=== PATIENT | male | born 1995 | race Caucasian/White ===

== ENCOUNTER 2024-04-02 17:51 | Emergency (ER) | payer OTHER, SELFPAY ==
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
--- NOTE | ~2024-04-02 | XR_ITS ---
EXAMINATION: XR chest 1V portable DATE: 04/02/2024 18:58 INDICATION: Seizure TECHNIQUE: frontal view of the chest was obtained. COMPARISON: None FINDINGS: The lungs are clear with no focal airspace opacities, pulmonary edema, pleural effusion or pneumothor ax. The cardiomediastinal silhouette is normal. Visualized bones and soft tissues are unremarkable. IMPRESSION: 1. No acute cardiopulmonary disease. Reviewed, dictated and finalized at location A. UST MACHINE OPERATOR
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
[2024-04-02 17:55] VITALS: BP 133/79; PULSE 118; RESP 20; TEMP 36.4; O2SAT 97
[2024-04-02 18:04] VITALS: BP 133/79; PULSE 117; RESP 20; O2SAT 96
--- NOTE | 2024-04-02 18:04 | ECG_ITS ---
Test Date: 2024-04-02 18:06:03 Measurements Intervals Reynolds Rate: 116 P: 55 TX: 140 QRS: 49 QRSD: 96 T: 40 QT: 308 QTc: 428 Interpretive Statements SINUS TACHYCARDIA ABNORMAL ECG No previous ECG available for comparison Electronically Signed On 04-02-2024 19:56:00 MAILROOM COURIER by Frederick Tomas D.O.
[2024-04-02 18:08] VITALS: PULSE 112; O2SAT 98
[2024-04-02 18:14] LABS: Basophils Absolute Auto 0.1 K/mm3 (0.0-0.1); Basophils Percent Auto 0.5 % (0.2-1.2); Eosinophils Absolute Auto 0.1 K/mm3 (0-0.3); Eosinophils Percent Auto 0.4 % (0-4.4); Hematocrit 47.4 % (42.0-52.0); Hemoglobin 16.1 g/dL (14.0-18.0); Immature Granulocyte Absolute 0.42 K/mm3 (0.00-0.031); Immature Granulocyte Percent A 2.4 % (0-0.5); Lymphocytes Absolute Auto 2.78 K/mm3 (0.9-3.2); Lymphocytes Percent Auto 15.6 % (18.3-44.2); Mean Corpuscular Hemoglobin 29.7 pg (26-34); Mean Corpuscular Volume 87.3 fl (80-100); Mean Platelet Volume 10.5 fl (7.4-10.4); Monocytes Absolute Auto 1.1 K/mm3 (0.1-0.6); Monocytes Percent Auto 6.1 % (2.6-8.5); Neutrophils Absolute Auto 13.4 K/mm3 (1.3-6.7); Platelet Count Result 341 k/mm3 (150-375); Red Blood Count 5.43 M/mm3 (4.6-6.20); Red Cell Distribution Width 12.3 % (11.5-14.5); White Blood Count 17.9 K/mm3 (4.5-10.0)
[2024-04-02 18:15] VITALS: PULSE 119; RESP 20; O2SAT 96
--- OUTSIDE RECORDS SUMMARY | 2024-04-02 18:33 | XMS_ITS | Clinical Summary ---
Author Organization [employer] [facility] Address [address] [place] [address] Phone Care Team Providers Care Roof Foreman Name Role Phone Brandt Quinones MD Primary Care Provider [phone] Allergies Active Allergy Reactions Criticality Noted Date Comments Ondansetron Hcl Nausea & Vomiting Medium 02/23/2017 Medications * This document contains information received from the source organization and may not represent a complete record from that organization. 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 Multiple substance abuse 02/22/2018 Hemorrhoids 05/09/2017 Seizure 02/24/2017 Overview (01/20/2024): February 2017 when coming off Meth, heroin Encounters Date Type Department Care Team Description 01/21/2024 Telephone [facility] [address] [place] [address] Tejas Riggs PA Missed Appointment 01/14/2024 11:41 AM HOME HEALTH NURSE LICENSED PRACTICAL - 01/14/2024 4:28 PM HOME HEALTH NURSE LICENSED PRACTICAL Emergency [facility] Emergency Department [address] [place] [address] Yuliya Dawson MD Seizure ([facility]) (Primary Dx) Discharge Disposition: Discharged to Home or Self Care from Last 3 Months Family History Medical History Relation Name Comments Hypertension Father Diabetes Maternal Grandfather No Pertinent Hx Mother OTHER Other Hypertension - Mother: Noted on 2010-08-25 12:33:41 OTHER Sister Nesha malformat ion Relation Name Status Comments Father Alive Maternal Grandfather Mother Alive Other Sister Alive Social History Tobacco Use Types Packs/Day Years Used Date Smoking Tobacco: Every Day Cigarettes Smokeless Tobacco: Never Tobacco Cessation:Counseling Given: No Alcohol Use Standard Drinks/Week Comments No 0 (1 standard drink = 0.6 oz pur e alcohol) Sex and Gender Information Value Date Recorded Sex Assigned at Not on file Legal Sex Male 8:16 AM CDT Gender Identity Not on file Sexual Orientation Not on file Last Filed Vital Signs Vital Sign Reading Time Taken Comments Blood Pressure 127/62 01/14/2024 4:00 PM HOME HEALTH NURSE LICENSED PRACTICAL Pulse 86 01/14/2024 11:39 AM HOME HEALTH NURSE LICENSED PRACTICAL Temperature 36.8 C (98.3 F) 01/14/2024 11:39 AM HOME HEALTH NURSE LICENSED PRACTICAL Respiratory Rate 18 01/14/2024 4:00 PM HOME HEALTH NURSE LICENSED PRACTICAL Oxygen Saturation 97% 01/14/2024 4:00 PM HOME HEALTH NURSE LICENSED PRACTICAL Inhaled Oxygen Concentration - - Weight 96.8 kg (213 lb 6.5 oz) 01/14/2024 11:39 AM HOME HEALTH NURSE LICENSED PRACTICAL Height 175.3 cm (5' 9 ) 01/14/2024 11:39 AM HOME HEALTH NURSE LICENSED PRACTICAL Body Mass Index 31.51 01/14/2024 11:39 AM HOME HEALTH NURSE LICENSED PRACTICAL Plan of Treatment Health Maintenance Due Date Last Done Comments MMR Vaccines (1 of 1 - Stand walter series) 1998 Pneumococcal Vaccines (0-64 Years) (1 of 2 - PCV) 05/25/2003 Varicella Vaccines (1 of 2 - 13+ 2-dose series) 2010 HPV Vaccines (1 - Male 3-dos e series) 2012 DTaP/Tdap/Td Vaccines (1 - Tdap) 2016 Hepatitis A Vaccines (1 of 2 - Risk 2-dose series) 2016 Hepatitis B Vaccines (1 of 3 - 19+ 3-dose series) 2016 COVID-19 Vaccine (2023-2 5 season) 2023 Influenza Vaccine (#1) 2023 Depression Screening 03/25/2024 03/25/2023 HIB Vaccines Aged Out No longer eligi ble based on patient's age to complete this topic IPV Vaccines Aged Out No longer eligi ble based on patient's age to complete this topic Meningococcal Vaccine (ACWY) Aged Out No longer eligible based on patient's age to complete this topic Rotavirus Vaccines Aged Out No longer eligible based on patient's age to complete this topic Procedures Procedure Name Priority Date/Time Associated Diagnosis Comments VALPROIC ACID Routine 01/14/2024 12:01 PM HOME HEALTH NURSE LICENSED PRACTICAL CBC W/DIFF Routine 01/14/2024 12:01 PM HOME HEALTH NURSE LICENSED PRACTICAL BASIC METABOLIC PANEL Routine 01/14/2024 12:01 PM HOME HEALTH NURSE LICENSED PRACTICAL from Last 3 Months Results * (ABNORMAL) CBC W/DIFF (01/14/2024 12:01 PM HOME HEALTH NURSE LICENSED PRACTICAL) WBC 15.39(H) 3.87 - 9.10 10*3/uL 01/14/2024 1:18 PM [facility] RBC 5.17 4.33 - 5.44 10*6/uL 01/14/2024 1:18 PM [facility] HGB 15.5 13.4 - 16.1 g/dL 01/14/2024 1:18 PM [facility] HCT 44.7 40.1 - 49.2 % 01/14/2024 1:18 PM [facility] MCV 86.5 82.0 - 99.0 fL 01/14/2024 1:18 PM [facility] MCH 30.0 28.5 - 32.1 pg 01/14/2024 1:18 PM [facility] MCHC 34.7(H) 31.4 - 34.5 g/dL 01/14/2024 1:18 PM [facility] PLATELET 284 150 - 400 10*3/uL 01/14/2024 1:18 PM [facility] RDW 12.3 11.4 - 14.0 % 01/14/2024 1:18 PM [facility] # NRBC 0.00 0 10*3/uL 01/14/2024 1:18 PM [facility] MPV 10.1 8.8 - 12.2 fL 01/14/2024 1:18 PM [facility] DIFFERENTIAL TYPE AUTOMATED DIFFERENTIAL 01/14/2024 1:18 PM [facility] SEG 78.7 % 01/14/2024 1:18 PM [facility] ABSOLUTE NEUTR 12.10(H) 1.57 - 6.01 10*3/uL 01/14/2024 1:18 PM [facility] LYMPHOCYTE 9.9 % 01/14/2024 1:18 PM [facility] ABSOLUTE LYMPH 1.53 0.92 - 2.93 10*3/uL 01/14/2024 1:18 PM [facility] MONOCYTE 8.7 % 01/14/2024 1:18 PM [facility] ABSOLUTE MONO 1.34(H) 0.26 - 0.87 10*3/uL 01/14/2024 1:18 PM [facility] EOSINOPHIL 1.8 % 01/14/2024 1:18 PM [facility] ABSOLUTE EOS 0.28 0.00 - 0.35 10*3/uL 01/14/2024 1:18 PM [facility] BASOPHIL 0.6 % 01/14/2024 1:18 PM [facility] ABSOLUTE BASO 0.09 0.01 - 0.09 10*3/uL 01/14/2024 1:18 PM [facility] IMMATURE GRANULOCYTE 0.3 % 01/14/2024 1:18 PM [facility] ABSOLUTE IMMATURE GRANULOCYTE 0.05 0.00 - 0.05 10*3/uL 01/14/2024 1:18 PM [facility] Comment:Performed at [facility], [address] [place] [address], ([phone], unless otherwise noted. 01/14/2024 12:0 1 PM HOME HEALTH NURSE LICENSED PRACTICAL 01/14/2024 12:54 PM HOME HEALTH NURSE LICENSED PRACTICAL us Unknown Provider HEM/CHEM/IMMUN-BLOOD Final Resu lt [facility] [address] [place] [address], [place] [phone] * (ABNORMAL) BASIC METABOLIC PANEL (01/14/2024 12:01 PM HOME HEALTH NURSE LICENSED PRACTICAL) SODIUM 137 136 - 145 mmol/L 01/14/2024 1:43 PM [facility] POTASSIUM 4.2 3.5 - 5.1 mmol/L 01/14/2024 1:43 PM [facility] CHLORIDE 108(H) 98 - 107 mmol/L 01/14/2024 1:43 PM [facility] CO2 27 21 - 32 mmol/L 01/14/2024 1:43 PM [facility] GLUCOSE 93 74 - 99 mg/dL 01/14/2024 1:43 PM [facility] BUN 13 7 - 18 mg/dL 01/14/2024 1:43 PM [facility] CREATININE 0.93 0.70 - 1.30 mg/dL 01/14/2024 1:43 PM [facility] CALCIUM 9.8 8.3 - 10.3 mg/dL 01/14/2024 1:43 PM [facility] ANION GAP 2(L) 4 - 10 mmol/L 01/14/2024 1:43 PM [facility] BUN / CREAT RATIO 13.9 01/14/2024 1:43 PM [facility] OSMOLALITY CALCULATED 284 275 - 295 mosm/kg 01/14/2024 1:43 PM [facility] GFR: CKD-EPI 2020 CREAT >90 >60 mL/min/[1. 73_m2] 01/14/2024 1:43 PM HOME HEALTH NURSE LICENSED PRACTICAL [facility] Comment:Performed at [facility], [address] [place] [address], ([phone], unless otherwise noted. 01/14/2024 12:0 1 PM HOME HEALTH NURSE LICENSED PRACTICAL 01/14/2024 12:54 PM HOME HEALTH NURSE LICENSED PRACTICAL us Unknown Provider HEM/CHEM/IMMUN-BLOOD Final Resu lt Performing Organization Address City/[facility]/ZIP Co de Phone Number [facility] [address] [place] [address], [place] [phone] * (ABNORMAL) VALPROIC ACID (01/14/2024 12:01 PM HOME HEALTH NURSE LICENSED PRACTICAL) VALPROIC ACID <3.0(L) 50.0 - 100.0 mcg/mL 01/14/2024 1:43 PM HOME HEALTH NURSE LICENSED PRACTICAL [facility] Comment:Performed at [facility], [address] [place] [address], ([phone], unless otherwise noted. 01/14/2024 12:0 1 PM HOME HEALTH NURSE LICENSED PRACTICAL 01/14/2024 12:54 PM HOME HEALTH NURSE LICENSED PRACTICAL us Unknown Provider HEM/CHEM/IMMUN-BLOOD Final Resu lt [facility] [address] [place] [address], [place] [phone] from Last 3 Months Insurance [facility] [place] [address] Care Teams Roof Foreman Relationship Specialty Start Date End Date Brandt Quinones MD [address] [place] [address] PCP - General Family Medicine 03/25/23
--- OUTSIDE RECORDS SUMMARY | 2024-04-02 18:33 | XMS_ITS | Clinical Summary ---
Author Organization [facility] Address [address] [place] [address] Phone Care Team Providers Care Bank Credit Card Collection Clerk Name Role Phone Jalil Carter MD Primary Care Provider [phone] Allergies Active Allergy Reactions Criticality Noted Date Comments Ondansetron Hcl Vomiting 02/23/2017 Medications divalproex (DEPAKOTE) 500 MG Tablet Delayed Response Take 1 Tab by mouth 2 times daily. 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 Constipation 05/09/2017 Hemorrhoids 05/09/2017 Food intolerance 05/09/2017 New onset seizure 02/24/2017 Family History Medical History Relation Name Comments Hypertension Father Relation Name Status Comments Father Social History Tobacco Use Types Packs/Day Years Used Date Smoking Tobacco: Every Day Cigarettes 1.5 6 Smokeless Tobacco: Former Chew Tobacco Cessation:Ready to Q uit: Not Asked; Counseling Given: Not Answered Alcohol Use Standard Drinks/Week Comments Yes 0 (1 standard drink = 0.6 oz pur e alcohol) 3 drinks a week Sexually Active Control Partners Comments Yes Condom Female Sex and Gender Information Value Date Recorded Sex Assigned at Not on file Legal Sex Male 12:03 PM [employer] Gender Identity Not on file Sexual Orientation Not on file Last Filed Vital Signs Vital Sign Reading Time Taken Comments Blood Pressure 129/79 08/01/2023 12:54 AM CDT Pulse 109 08/01/2023 12:54 AM CDT Temperature 37.2 C (98.9 F) 07/31/2023 11:49 PM CDT Respiratory Rate 19 08/01/2023 12:54 AM CDT Oxygen Saturation 95% 08/01/2023 12:54 AM CDT Inhaled Oxygen Concentration - - Weight 95.3 kg (210 lb) 07/31/2023 11:49 PM CDT Height 175.3 cm (5' 9 ) 07/31/2023 11:49 PM CDT Body Mass Index 31.01 07/31/2023 11:49 PM CDT Plan of Treatment Health Maintenance Due Date Last Done Comments Hepatitis C Virus (HCV) Screening 1997 TdaP Immunization 1997 Human Papillomavirus (HPV) Immunization (1 - Male 3-dose series) 2012 Hepatitis B Immunization (1 of 3 - 19+ 3-dose series) 2016 Pneumococcal Immunization Co mbined (1 of 2 - PCV) 2016 Influenza Immunization (#1) 2023 SARS-COV-2 Immunization (1 - season) 2023 Respiratory Syncytial Virus (RSV) Immunization (Adult) (1 - 1-dose 75+ series) 2072 Meningococcal Immunization (ACWY) Aged Out No longer eligible based on patient's age to complete this topic Rotavirus Immunization Aged Out No lo nger eligible based on patient's age to complete this topic Insurance MEDICAID [facility] GENER[facility] Advance Directives * Full Code (Latest Code Status on File) Date Activated Date Inactivated Comments 02/23/2017 5:00 PM 02/24/2017 2:16 PM CPR-Full Jeffrey atment: FULL ARREST: Attempt Resuscitation/CPR wit intubation and mechanical ventilation. PRE-ARREST: Use entire range of life support measures to stabilize the patient. Care Teams Bank Credit Card Collection Clerk Relationship Specialty Start Date End Date Jalil Carter MD [address] [place] [address] PCP - General Internal Medicine/Pediatrics 05/09/17
--- OUTSIDE RECORDS SUMMARY | 2024-04-02 18:33 | XMS_ITS | Encounter Summary ---
Author Organization [facility] Address [address] [place] [address] Phone Care Team Providers Care Lan/Wan Engineer Name Role Phone Brandt Quinones MD Primary Care Provider [phone] Reason for Visit * Reason Onset Date Comments Missed Appointment 01/21/2024 Encounter Details Date Type Department Care Team (Late st Contact Info) Description 01/21/2024 Telephone [facility] [address] [place] [address] Tejas Riggs PA [address], [place] [id number] Missed Appointment Social History Tobacco Use Types Packs/Day Years Used Date Smoking Tobacco: Every Day Cigarettes Smokeless Tobacco: Never Alcohol Use Standard Drinks/Week Comments No 0 (1 standard drink = 0.6 oz pur e alcohol) Sex and Gender Information Value Date Recorded Sex Assigned at Not on file Legal Sex Male 8:16 AM CDT Gender Identity Not on file Sexual Orientation Not on file documented as of this encounter Miscellaneous Notes * Telephone Encounter - Sandy Hutson RN - 01/22/2024 10:03 AM CAR REPAIRMAN Okay for letter. REPAIRMAN * Telephone Encounter - Monika Edward RN - 01/21/2024 10:19 AM CST Today's appointment was an initial appointment to establish care with SHIKHA Avery. Awaiting guidance from administrative officer on how to proceed. REPAIRMAN * Telephone Encounter - Monika Edward RN - 01/21/2024 10:18 AM CST ----- Message from Chica sent at 01/21/2024 9:46 AM CAR REPAIRMAN ----- Re: Pt was a no show for today's appt 01-21-2024. Do you want the 1st no show letter to be sent ? Phone Pharmacy REPAIRMAN documented in this encounter Plan of Treatment Not on file documented as of this encounter Visit Diagnoses Not on filedocumented in this encounter Additional Health Concerns Assessment Noted Time A Hypertension Plan of Care has been documented for the patient 03/25/2023 3:03 PM CAR REPAIRMAN documented as of this encounter Care Teams Lan/Wan Engineer Relationship Specialty Start Date End Date Brandt Quinones MD [address] [place] [address] PCP - General Family Medicine 03/25/23 documented as of this encounter
--- OUTSIDE RECORDS SUMMARY | 2024-04-02 18:33 | XMS_ITS | Encounter Summary ---
Author Organization [facility] Address [address] [place] [address] Phone Care Team Providers Care Inspector Tool Name Role Phone Brandt Quinones MD Primary Care Provider [phone] Reason for Visit * Reason Onset Date Comments !Other 03/07/2023 Establish Care Encounter Details Date Type Department Care Team ([facility] st Contact Info) Description 03/07/2023 Telephone [facility] [address] [place] [address] Az Nath !Other (Establish Care) Social History Tobacco Use Types Packs/Day Years [...] encounter Miscellaneous Notes * Telephone Encounter - Az Nath - 03/07/2023 10:45 AM CST Tc from patient's Tamika stating she's needing to schedule a New Patient appointment for patient, patient has Medicaid for insurance. I verified registration information and scheduled a New Patient appointment as requested, please see appointment details below. [facility] Medicine Main [address] [place] [address] Date: 03/15/2023 Time: 1:120pm (1:05pm arrival) Provider: Dr. Bennett Advised that patient will need to arrive 15 minutes early, bring Photo ID, Insurance Card and to call the office at [phone] if he needs to reschedule. Tamika verbalized understanding. [employer] documented in this encounter Plan of Treatment Not on file documented as of this encounter Visit Diagnoses Not on filedocumented in this encounter Care Teams Inspector Tool Relationship Specialty Start Date End Date Brandt Quinones MD [address] [place] [address] PCP - General Family Medicine 03/25/23 documented as of this encounter
[2024-04-02 18:38] LABS: Alanine Aminotransferase 59 U/L (6-50); Albumin Level 5.1 g/dL (3.5-5.1); Alkaline Phosphatase 110 U/L (38-126); Anion Gap 20 mmol/L (4-12); Aspartate Amino Transferase 45 U/L (17-59); Bilirubin,Total 0.6 mg/dL (0.2-1.3); Blood Urea Nitrogen 14 mg/dL (9-20); Calcium 9.7 mg/dL (8.4-10.2); Carbon Dioxide 14 mmol/L (22-30); Chloride 105 mmol/L (98-107); Estimated CRCL calculation 129 ml/min; Estimated Glomerular Filt Rate > 60; Glucose 121 mg/dL (65-110); Potassium 4.3 mmol/L (3.4-5.0); Sodium 139 mmol/L (137-145)
[2024-04-02 19:39] VITALS: PULSE 89; RESP 15; O2SAT 98
[2024-04-02] MEDS: ONDANSETRON INJ 4 MG/2 ML VIAL IV PUSH (20:39)
[2024-04-02] MEDS: HYDROmorphone HCL INJ (*CRX) 1 MG/ML SYR 0.5 MG IV PUSH (20:40)
[2024-04-02 20:56] VITALS: BP 135/79; PULSE 114; RESP 20; O2SAT 100
== END 2024-04-02 21:14 | disposition short-term general hospital (02) ==
PROVIDERS: Emergency Provider Emergency Medicine
DX: S32.019A Unspecified fracture of first lumbar vertebra, initial encounter for closed fracture (principal); V89.2XXA Person injured in unspecified motor-vehicle accident, traffic, initial encounter; R56.9 Unspecified convulsions; M54.9 Dorsalgia, unspecified
CPT/HCPCS: 36415; 70450; 71045; 71260; 72125; 72129; 72132; 74177; 80053; 85025; 93005; 96374; 96375; 99285; J1171; J2405; Q9967